=== PATIENT | female | born 1950 | race Caucasian/White ===

== ENCOUNTER 2020-08-07 19:54 | Emergency (ER) | payer OTHER, SELFPAY ==
[~2020-08-07 19:54] MED LIST: ACETAMINOPHEN500 MG PO; ASPIRIN EC81 MG PO; EUTHYROX88 MCG PO; LIPITOR TAB 1010 MG PO; MACROBID 100 M100 MG PO; MIRALAX17 GM PO; ZOFRAN ODT 4 MG4 MG PO
[2020-08-07 20:31] LABS: HEMOGLOBIN 12.4 gm/dl (12.3-15.3); RED BLOOD COUNT 4.22 M/UL (4.00-5.10); WHITE BLOOD COUNT 5.8 K/UL (4.5-11.0)
[2020-08-07 20:55] LABS: BUN/CREATININE RATIO 19 (0-10)
== END 2020-08-08 00:24 | disposition home or self-care (01) ==
LOC: ER1 19:54
PROVIDERS: Emergency Medicine
DX: R07.89 Other chest pain (principal); E78.00 Pure hypercholesterolemia, unspecified; Z91.011 Allergy to milk products; Z91.010 Allergy to peanuts; Z96.649 Presence of unspecified artificial hip joint
CPT/HCPCS: 36415; 70450; 71045; 80053; 82550; 82553; 83874; 83880; 84484; 85025; 93005; 99285

== ENCOUNTER → 2020-10-30 | Outpatient (CLI) | payer MEDICARE ==
[~2020-10-30] MED LIST changes: +LEVOTHYROXINE50 MC1 PO
== END ==
LOC: HEART 5 10-05 08:30 → NM 08:23
DX: R06.02 Shortness of breath (principal); R00.2 Palpitations; R93.1 Abnormal findings on diagnostic imaging of heart and coronary circulation
CPT/HCPCS: ECHO; 36415; 78452; 84436; 84443; 93017; 93306; A9502; J2785

== ENCOUNTER → 2020-11-04 | Outpatient (CLI) | payer MEDICARE | LOC: HEART 5 10-30 11:30 | DX: R00.2 Palpitations (principal) ==

== ENCOUNTER 2020-11-11 10:39 | Observation (INO) | payer MEDICARE ==
[~2020-11-11] VITALS: Ht 172.7 cm; Wt 59.4 kg
[~2020-11-11 10:39] MED LIST changes: -LEVOTHYROXINE50 MC1 PO
[2020-11-11 11:34] LABS: HEMOGLOBIN 11.9 gm/dl (12.3-15.3); RED BLOOD COUNT 3.95 M/UL (4.00-5.10); WHITE BLOOD COUNT 4.3 K/UL (4.5-11.0)
[2020-11-11 12:06] LABS: BUN/CREATININE RATIO 15 (0-10)
[2020-11-12 03:20] LABS: HEMOGLOBIN 11.2 gm/dl (12.3-15.3); RED BLOOD COUNT 3.79 M/UL (4.00-5.10)
[2020-11-12 03:28] LABS: WHITE BLOOD COUNT 6.8 K/UL (4.5-11.0)
[2020-11-12 04:28] LABS: BUN/CREATININE RATIO 18 (0-10)
[2020-11-12] MEDS ORDERED: LEVOTHYROXINE50 MC1 PO (10:07)
== END 2020-11-12 11:13 | disposition home or self-care (01) ==
LOC: ER1 10:39 → CDU 13:55 → M/S 23:05
PROVIDERS: Emergency Medicine; Physician Assistant Medical; ADMIT Family Medicine
DX: E05.80 Other thyrotoxicosis without thyrotoxic crisis or storm (principal); T38.1X5A Adverse effect of thyroid hormones and substitutes, initial encounter; E03.9 Hypothyroidism, unspecified; E78.5 Hyperlipidemia, unspecified; Z20.822 Contact with and (suspected) exposure to COVID-19; Z79.899 Other long term (current) drug therapy; Z87.81 Personal history of (healed) traumatic fracture
CPT/HCPCS: 36415; 70450; 71045; 80048; 80053; 82550; 82553; 83735; 83874; 84439; 84443; 84481; 84484; 85025; 85027; 85610; 85730; 93005; 99285; G0378; U0002

== ENCOUNTER 2021-04-12 12:01 | Emergency (ER) | payer MEDICARE ==
[~2021-04-12 12:01] MED LIST changes: +LEVOTHYROXINE50 MC1 PO
[2021-04-12 12:43] LABS: HEMOGLOBIN 13.2 gm/dl (12.3-15.3); RED BLOOD COUNT 4.31 M/UL (4.00-5.10); WHITE BLOOD COUNT 5.6 K/UL (4.5-11.0)
[2021-04-12 13:14] LABS: BUN/CREATININE RATIO 13 (0-10)
== END 2021-04-12 14:40 | disposition home or self-care (01) ==
LOC: ER1 12:01
PROVIDERS: Student in an Organized Health Care Education/Training Program
DX: R42 Dizziness and giddiness (principal); M79.602 Pain in left arm; E03.9 Hypothyroidism, unspecified
CPT/HCPCS: 71045; 80053; 82550; 82553; 83874; 84484; 85025; 93005; 99284

== ENCOUNTER → 2021-10-27 | Outpatient (CLI) | payer MEDICARE | LOC: EXRD 13:50 | DX: R55 Syncope and collapse (principal); I65.23 Occlusion and stenosis of bilateral carotid arteries | CPT/HCPCS: 93880 ==